=== PATIENT | female | born 1960 | race Caucasian/White ===

== ENCOUNTER 2020-08-31 08:56 | Emergency (ER) | payer OTHER ==
--- NOTE | 2020-08-31 09:55 | RAD REPORT ---
EXAM DESCRIPTION: RAD - Chest Single View - 08/31/2020 9:48 am CLINICAL HISTORY: COUGH Chest pain. COMPARISON: Chest Pa And Lat (2 Views) dated 06/21/2018; Chest Pa And Lat (2 Views) dated 12/30/2016 FINDINGS: Portable technique limits examination quality. The lungs are grossly clear. The heart is normal in size. No displaced fractures. IMPRESSION: No acute intrathoracic process suspected.
[2020-08-31 10:22] LABS: Absolute Lymphocytes (CBC) 1.2 K/uL (0.7-4.9); Basophils % 0.3 % (0-1.3); Hematocrit 35.1 % (36.0-45.0); Lymphocytes % 31.3 % (15.3-44.8); MPV 8.9 fL (7.6-11.3); RBC Red Blood Cell Count 3.78 M/uL (3.86-4.86)
[2020-08-31 10:32] LABS: Protime INR 0.98
[2020-08-31 10:35] LABS: ALT/SGPT 25 U/L (12-78); AST/SGOT 27 U/L (15-37); Albumin 3.6 g/dL (3.4-5.0); Alkaline Phosphatase 46 U/L (45-117); BUN Blood Urea Nitrogen 17 mg/dL (7-18); Bicarbonate 27 mmol/L (21-32); Bilirubin Direct 0.1 mg/dL (0-0.2); Bilirubin Total 0.4 mg/dL (0.2-1.0); Glucose Level 89 mg/dL (74-106); Lipase 60 U/L (73-393); NT PRO-BNP 155 pg/mL (<125); Potassium 3.6 mmol/L (3.5-5.1); Protein, Total 7.3 g/dL (6.4-8.2); Sodium Level 142 mmol/L (136-145); Troponin (Emerg Dept Use Only) < 0.02 ng/mL (0.0-0.045)
[2020-08-31 10:37] LABS: C-Reactive Protein < 2.90 mg/L (<3.00)
--- NOTE | 2020-08-31 12:34 | RAD REPORT ---
EXAM DESCRIPTION: CT - Chest For Pe Angio - 08/31/2020 12:20 pm CLINICAL HISTORY: Chest pain. DYSPNEA COMPARISON: No comparisons TECHNIQUE: CT angiogram of the pulmonary arteries was performed with MIP. All CT scans are performed using dose optimization technique as appropriate and may include automated exposure control or mA/KV adjustment according to patient size. FINDINGS: No evidence of pulmonary thromboembolism. No acute aortic finding demonstrated. Mild ground-glass lung opacities are present bilaterally. No significant pericardial or pleural fluid. No concerning bony finding. IMPRESSION: No evidence of pulmonary thromboembolism. Mild ground-glass lung opacities are present bilaterally suspicious for bronchitis/viral infection.
--- NOTE | 2020-08-31 12:50 | EDPHYS ---
Physician Documentation [facility] Name: Melanie Boles Age: 60 yrs Sex: Female : 1960 Arrival Date: 08/31/2020 Time: 08:59 Bed 15 Private MD: Mikey Aguayo C ED Physician Horace Chanel HPI: 08/31 09:26 This 60 yrs old Female presents to ER via Ambulatory with complaints of kb Cough, Breathing Difficulty. 09:26 The patient or guardian reports cough, that is intermittent, described as moderate, kb difficulty breathing. Onset: The symptoms/episode began/occurred last month. Severity of symptoms: At their worst the symptoms were moderate, in the emergency department the symptoms are unchanged. Modifying factors: The symptoms are alleviated by nothing, the symptoms are aggravated by nothing. Associated signs and symptoms: The patient has no apparent associated signs or symptoms. The patient has not experienced similar symptoms in the past. The patient has not recently seen a physician. Pt reports she had COVID last month and has continued to have a cough and dyspnea on exertion. . Historical: - Allergies: 09:28 Methotrexate; bp 09:28 PENICILLINS; bp 09:28 Darvocet-N 100; bp 09:28 E.E.S. 200; bp 09:28 Clindamycin; bp 09:28 Codeine; bp 09:28 Zomig; bp 09:28 Seroquel; bp 09:28 ambien; bp 09:28 Imitrex; bp 09:28 Benadryl; bp 09:28 Trazodone; bp 09:28 Mirtazapine; bp - Home Meds: 09:28 tramadol 50 mg Oral tab 1 tab every 4 hours [Active]; propranolol 80 mg Oral Cs24 1 cap bp once daily [Active]; Synthroid 200 mcg Oral tab 1 tab once daily [Active]; Lyrica 100 MG Oral 1 cap daily [Active]; estradiol 0.5 mg Oral tab 1 tab once daily [Active]; Mirapex 0.5 mg Oral tab 1 tab 3 times per day [Active]; tizanidine 4 mg oral cap 1 cap nightly [Active]; sulfasalazine 500 mg Oral tab 1 tab 4 times per day [Active]; Celebrex 200 mg Oral cap 1 cap once daily [Active]; fenofibrate 150 mg oral cap 1 cap once daily [Active]; pantoprazole 40 mg oral TbEC 1 tab once daily [Active]; leflunomide 10 mg oral tab 1 tab once daily [Active]; hydroxychloroquine 200 mg oral tab 1 tab once daily [Active]; - PMHx: : ROSSY'S; PHILIPP'S ESOPHAGUS; Ulcers; bp - PSHx: : Hysterectomy; CERVICAL NECK FUSION; Cholecystectomy; bp - Immunization history:: Adult Immunizations up to date. - Social history:: Smoking status: unknown. ROS: 09:17 Constitutional: Negative for fever, chills, and weight loss, Cardiovascular: Negative kb for chest pain, palpitations, and edema, Abdomen/GI: Negative for abdominal pain, nausea, vomiting, diarrhea, and constipation, Back: Negative for injury and pain, MS/Extremity: Negative for injury and deformity, Skin: Negative for injury, rash, and discoloration, Neuro: Negative for headache, weakness, numbness, tingling, and seizure. :17 Respiratory: Positive for cough, dyspnea on exertion, Negative for hemoptysis, orthopnea, pleurisy, shortness of breath, sputum production, wheezing. Exam: 09:24 Constitutional: This is a well developed, well nourished patient who is awake, alert, kb and in no acute distress. Head/Face: Normocephalic, atraumatic. Chest/axilla: Normal chest wall appearance and motion. Nontender with no deformity. No lesions are appreciated. Cardiovascular: Regular rate and rhythm with a normal S1 and S2. No gallops, murmurs, or rubs. Normal PMI, no JVD. No pulse deficits. Respiratory: Lungs have equal breath sounds bilaterally, clear to auscultation and percussion. No rales, rhonchi or wheezes noted. No increased work of breathing, no retractions or nasal flaring. Abdomen/GI: Soft, non-tender, with normal bowel sounds. No distension or tympany. No guarding or rebound. No evidence of tenderness throughout. Skin: Warm, dry with normal turgor. Normal color with no rashes, no lesions, and no evidence of cellulitis. MS/ Extremity: Pulses equal, no cyanosis. Neurovascular intact. Full, normal range of motion. Neuro: Awake and alert, GCS 15, oriented to person, place, time, and situation. Cranial nerves II-XII grossly intact. Motor strength 5/5 in all extremities. Sensory grossly intact. Cerebellar exam normal. Normal gait. 10:19 ECG was reviewed by the Attending Physician. Vital Signs: 09:16 BP 119 / 72; Pulse 81; Resp 16; Temp 98.1; Pulse Ox 100% ; Weight 73.03 kg; Height 5 bp ft. 3 in. (160.02 cm); 10:23 BP 119 / 56; Pulse 77; Resp 20; Pulse Ox 98% ; bp 12:14 BP 94 / 45; Pulse 76; Resp 15; Pulse Ox 96% ; bp 13:10 BP 121 / 62; Pulse 84; Resp 19; Temp 98.1; Pulse Ox 100% ; bp 09:16 Body Mass Index 28.52 (73.03 kg, 160.02 cm) bp MDM: 09:06 Patient medically screened. kb 09:17 Data reviewed: vital signs, nurses notes. kb 09:20 Data interpreted: Pulse oximetry: on room air is 100 %. Interpretation: normal. kb 11:14 Physician consultation: A Dede NESBITT was contacted at 11:05, regarding consult, patient's kb condition, will return call . 11:38 ED course: Dr Aguayo requests CT scan for PE. . kb 12:47 Counseling: I had a detailed discussion with the patient and/or guardian regarding: the kb historical points, exam findings, and any diagnostic results supporting the discharge/admit diagnosis, lab results, radiology results, the need for outpatient follow up, a family practitioner, to return to the emergency department if symptoms worsen or persist or if there are any questions or concerns that arise at home. 08/31 09:14 Order name: Blood Culture Adult (2) 08/31 09:14 Order name: BMP 08/31 09:14 Order name: C-Reactive Protein 08/31 09:14 Order name: CBC with Diff 08/31 09:14 Order name: D-Dimer 08/31 09:14 Order name: Ferritin 08/31 09:14 Order name: Lactate 08/31 09:14 Order name: LFT's 08/31 09:14 Order name: Lipase 08/31 09:14 Order name: Procalcitonin 08/31 09:14 Order name: PT-INR kb 08/31 09:14 Order name: Ptt, Activated; Complete Time: 10:35 kb 08/31 09:14 Order name: Troponin (emerg Dept Use Only); Complete Time: 10:53 kb 08/31 09:14 Order name: BNP; Complete Time: 10:53 kb 08/31 09:14 Order name: CXR XRAY; Complete Time: 10:06 kb 08/31 09:14 Order name: EKG; Complete Time: 09:15 kb 08/31 09:14 Order name: Cardiac monitoring; Complete Time: 10:02 kb 08/31 09:14 Order name: Droplet/Contact Precautions; Complete Time: 09:42 kb 08/31 09:15 Order name: Blood Culture EDMS 08/31 09:15 Order name: Basic Metabolic Panel; Complete Time: 10:53 EDMS 08/31 09:15 Order name: C-Reactive Protein; Complete Time: 10:53 EDMS 08/31 09:15 Order name: CBC with Automated Diff; Complete Time: 10:32 EDMS 08/31 09:15 Order name: D-Dimer; Complete Time: 10:35 EDMS 08/31 09:15 Order name: Ferritin; Complete Time: 10:53 EDMS 08/31 09:15 Order name: Lactate; Complete Time: 10:53 EDMS 08/31 09:15 Order name: Liver (Hepatic) Function; Complete Time: 10:53 EDMS 08/31 09:15 Order name: Lipase; Complete Time: 10:53 EDMS 08/31 09:15 Order name: Procalcitonin; Complete Time: 10:53 EDMS 08/31 09:15 Order name: Protime (+INR); Complete Time: 10:35 EDMS 08/31 11:38 Order name: CT Chest For PE Angio; Complete Time: 12:37 kb 08/31 09:14 Order name: EKG - Nurse/Tech; Complete Time: 10:02 kb 08/31 09:14 Order name: IV Start; Complete Time: 10:02 kb 08/31 09:14 Order name: Labs collected and sent; Complete Time: 10:02 kb 08/31 09:14 Order name: O2 Per Protocol; Complete Time: 09:15 kb 08/31 09:14 Order name: O2 Sat Monitoring; Complete Time: 09:15 kb EC:19 Rate is 70 beats/min. Rhythm is regular. QRS [place] is Normal. DE interval is normal at kb 184 msec. QRS interval is normal at 80 msec. QT interval is normal at 368 msec. Administered Medications: No medications were administered Disposition: 17:26 Co-signature as Attending Physician, Horace Chanel MD I agree with the assessment and kdr plan of care. Disposition: 08/31/20 12:49 Discharged to Home. Impression: Acute bronchitis. - Condition is Stable. - Discharge Instructions: Acute Bronchitis, [id number]. - Prescriptions for promethazine- DM - take 5 milliliter by ORAL route 4 times per day As needed; 100 milliliter. Albuterol Sulfate 90 mcg/actuation - inhale 1-2 puff by INHALATION route every 4-6 hours; 1 Inhaler. - Medication Reconciliation Form, Thank You Letter, Antibiotic Education, Prescription Opioid Use form. - Follow up: Emergency Department; When: As needed; Reason: Worsening of condition. Follow up: Mikey Aguayo MD; When: 2 - 3 days; Reason: Recheck today's complaints, Continuance of care, Re-evaluation by your physician. Signatures: Dispatcher [employer] EDMS Tosha Lewis, [employer] SUPERVISOR-C [employer] SUPERVISOR-Ckb Horace Chanel MD MD [facility] Korey Arcos, RN RN bp Corrections: (The following items were deleted from the chart) 13:12 12:49 08/31/2020 12:49 Discharged to Home. Impression: Acute bronchitis. Condition is bp Stable. Forms are Medication Reconciliation Form, Thank You Letter, Antibiotic Education, Prescription Opioid Use. Follow up: Emergency Department; When: As needed; Reason: Worsening of condition. Follow up: Mikey Aguayo; When: 2 - 3 days; Reason: Recheck today's complaints, Continuance of care, Re-evaluation by your physician. kb
--- NOTE | 2020-08-31 12:50 | ER ---
Nurse's Notes [facility] Name: Melanie Boles Age: 60 yrs Sex: Female : 1960 Arrival Date: 08/31/2020 Time: 08:59 Bed 15 Private MD: Mikey Aguayo C Diagnosis: Acute bronchitis Presentation: 08/31 09:16 Chief complaint: Patient states: COUGH SINCE 07/24/20. Coronavirus screen: cough bp unrelated to allergies, shortness of breath, Client presents with at least one sign or symptom that may indicate coronavirus-19. Standard/surgical mask placed on the client. Provider contacted for isolation considerations. Ebola Screen: No symptoms or risks identified at this time. Initial Sepsis Screen: Does the patient meet any 2 criteria? No. Patient's initial sepsis screen is negative. Does the patient have a suspected source of infection? Yes: Productive cough/pneumonia. Risk Assessment: Do you want to hurt yourself or someone else? Patient reports no desire to harm self or others. Onset of symptoms was July 24, 2020. 09:16 Method Of Arrival: Ambulatory bp 09:16 Acuity: SALIMA 3 bp Triage Assessment: 09:17 General: Appears in no apparent distress. comfortable, obese, Behavior is cooperative, bp appropriate for age, agitated, anxious. Pain: Complains of pain in back of head. EENT: No deficits noted. Neuro: No deficits noted. Cardiovascular: No deficits noted. Respiratory: Reports cough that is Onset: The symptoms/episode began/occurred SINCE 07/24/20, the patient has mild shortness of breath. GI: No signs and/or symptoms were reported involving the gastrointestinal system. : No signs and/or symptoms were reported regarding the genitourinary system. Derm: No deficits noted. Musculoskeletal: No deficits noted. Historical: - Allergies: 09:28 Methotrexate; bp 09:28 PENICILLINS; bp 09:28 Darvocet-N 100; bp 09:28 E.E.S. 200; bp 09:28 Clindamycin; bp 09:28 Codeine; bp 09:28 Zomig; bp 09:28 Seroquel; bp 09:28 ambien; bp 09:28 Imitrex; bp 09:28 Benadryl; bp 09:28 Trazodone; bp 09:28 Mirtazapine; bp - Home Meds: 09:28 tramadol 50 mg Oral tab 1 tab every 4 hours [Active]; propranolol 80 mg Oral Cs24 1 cap bp once daily [Active]; Synthroid 200 mcg Oral tab 1 tab once daily [Active]; Lyrica 100 MG Oral 1 cap daily [Active]; estradiol 0.5 mg Oral tab 1 tab once daily [Active]; Mirapex 0.5 mg Oral tab 1 tab 3 times per day [Active]; tizanidine 4 mg oral cap 1 cap nightly [Active]; sulfasalazine 500 mg Oral tab 1 tab 4 times per day [Active]; Celebrex 200 mg Oral cap 1 cap once daily [Active]; fenofibrate 150 mg oral cap 1 cap once daily [Active]; pantoprazole 40 mg oral TbEC 1 tab once daily [Active]; leflunomide 10 mg oral tab 1 tab once daily [Active]; hydroxychloroquine 200 mg oral tab 1 tab once daily [Active]; - PMHx: 09:28 ROSSY'S; PHILIPP'S ESOPHAGUS; Ulcers; bp - PSHx: 09:28 Hysterectomy; CERVICAL NECK FUSION; Cholecystectomy; bp - Immunization history:: Adult Immunizations up to date. - Social history:: Smoking status: unknown. Screenin:24 Abuse screen: Denies threats or abuse. Denies injuries from another. Nutritional bp screening: No deficits noted. Tuberculosis screening: No symptoms or risk factors identified. Fall Risk None identified. Assessment: 09:20 General: SEE TRIAGE NOTE. bp 10:24 Reassessment: No changes from previously documented assessment. Patient and/or family bp updated on plan of care and expected duration. Pain level reassessed. Cardiovascular: Rhythm is sinus rhythm. Respiratory: Airway is patent Respiratory effort is even, unlabored, Breath sounds are clear bilaterally. 12:14 Reassessment: Patient appears in no apparent distress at this time. No changes from bp previously documented assessment. Patient and/or family updated on plan of care and expected duration. Pain level reassessed. PT TO CT. 13:11 Reassessment: PT D/C HOME AMBULATORY, DX WITH ACUTE BRONCHITIS. bp Vital Signs: 09:16 BP 119 / 72; Pulse 81; Resp 16; Temp 98.1; Pulse Ox 100% ; Weight 73.03 kg; Height 5 bp ft. 3 in. (160.02 cm); 10:23 BP 119 / 56; Pulse 77; Resp 20; Pulse Ox 98% ; bp 12:14 BP 94 / 45; Pulse 76; Resp 15; Pulse Ox 96% ; bp 13:10 BP 121 / 62; Pulse 84; Resp 19; Temp 98.1; Pulse Ox 100% ; bp 09:16 Body Mass Index 28.52 (73.03 kg, 160.02 cm) bp ED Course: 08:59 Patient arrived in ED. ag5 08:59 Mikey Aguayo MD is Private Physician. ag5 09:06 Tosha Lewis FNP-C is [facility]. kb 09:06 Horace Chanel MD is Attending Physician. kb 09:11 Korey Arcos, ADRIAN is Primary Nurse. bp 09:19 Triage completed. bp 09:31 Arm band placed on. bp 09:48 CXR XRAY In Process Unspecified. EDMS 10:05 Inserted saline lock: 20 gauge in right antecubital area, using aseptic technique. bp Blood collected. 10:24 Patient has correct armband on for positive identification. Bed in low position. Call bp light in reach. Side rails up X2. 12:13 PT-INR Sent. bp 12:13 Procalcitonin Sent. bp 12:13 Lipase Sent. bp 12:13 LFT's Sent. bp 12:13 Lactate Sent. bp 12:13 Ferritin Sent. bp 12:13 D-Dimer Sent. bp 12:13 CBC with Diff Sent. bp 12:13 C-Reactive Protein Sent. bp 12:14 BMP Sent. bp 12:14 Blood Culture Adult (2) Sent. bp 12:21 CT Chest For PE Angio In Process Unspecified. EDMS 12:48 Mikey Aguayo MD is Referral Physician. kb 13:11 No provider procedures requiring assistance completed. IV discontinued, intact, bp bleeding controlled, No redness/swelling at site. Pressure dressing applied. Administered Medications: No medications were administered Outcome: 12:49 Discharge ordered by . kb 13:11 Discharged to home ambulatory. bp 13:11 Condition: stable 13:11 Discharge instructions given to patient, Instructed on discharge instructions, follow up and referral plans. medication usage, Demonstrated understanding of instructions, follow-up care, medications, Prescriptions given X 2. 13:12 Patient left the ED. bp Signatures: Dispatcher [employer] EDMS Joshua Tosha, EXPORT DOCUMENTS CLERK-C EXPORT DOCUMENTS CLERK-Ckb Korey Arcos, RN RN Najma Lopez ag
[2020-08-31 13:17] VITALS: TEMP 98.1
[2020-08-31 13:20] VITALS: BP 121/62; O2SAT 100
== END 2020-08-31 13:12 | disposition home or self-care (01) ==
LOC: ER 08:56
DX: J20.9 Acute bronchitis, unspecified (principal); E06.3 Autoimmune thyroiditis; K22.70 Barrett's esophagus without dysplasia; Z88.0 Allergy status to penicillin; Z88.6 Allergy status to analgesic agent; Z88.3 Allergy status to other anti-infective agents; Z88.8 Allergy status to other drugs, medicaments and biological substances
CPT/HCPCS: 87040 ×2; 85025; 80048; 36415; 85610; 85379; 80076; 83605; 85730; 84484; 82728; 83690; 84145; 83880; 86140; 71275; 71045; 99284; Q9967